=== PATIENT | female | born 2000 | race Caucasian/White ===

== ENCOUNTER 2023-01-05 15:29 | Outpatient (CLI) | payer OTHER, SELFPAY ==
[2023-01-05 16:29] LABS: Appearance Urine UA CLEAR; Bilirubin Urine UA NEGATIVE (NEGATIVE); Color Urine UA YELLOW; Glucose Urine UA NEGATIVE (Negative); Ketones Urine UA TRACE (NEGATIVE); Leukocyte Esterase Urine UA TRACE (NEGATIVE); Nitrite Urine UA NEGATIVE (Negative); Occult Blood Urine UA NEGATIVE (Negative); Protein Urine UA NEGATIVE (Negative); Specific Gravity Urine UA 1.025 (1.000-1.035); Urobilinogen Urine UA 0.2 E.U./dL (0.2)
[2023-01-05 16:31] LABS: pH Urine UA 6.5 (4.5-8.0)
[2023-01-05 16:52] LABS: Bacteria Urine Few (2-10); Culture Indicated Urine Cult Not Indicated; RBC Urine 0-1/HPF (0-5/HPF); Squamous Epithelial Cell Urine 10-30 /HPF (0-5/HPF); WBC Urine 1-5/HPF (0-5/HPF)
--- NOTE | 2023-01-08 08:08 | P.TNLD_ITS ---
Visit Information Visit Information Date of evaluation: 01/05/23 On-call OB Provider: Kaelyn Clayton Reason for Evaluation: Yes non-stress test Comments/Additional reasons for admission: 22yo at 31+2wks presented for blood on the toilet paper after wiping with a hard bowel movement. Reported some mild back pain as well. Gets her care in [place]. Vital Signs Vital Signs: BP 114/67, P 96, T 97.2, R 16 Review of Systems Review of Systems ROS: Yes All systems reviewed with the patient and are negative except as otherwise documented Objective Labs Labs: UA notable for trace ketones, trace leuk esterace, squamous cells and few bacteria Evaluation Evaluation Baseline heart rate: 140 Variability: Moderate (11-25) monitor accelerations: Present Monitor Decelerations: Absent Contraction Frequency (minutes): 0 Category of Tracing: Reactive Diagnosis, Plan/Disposition Final Diagnosis (1) False labor: Status: Acute (2) 31 weeks gestation of : Status: Acute Plan/Disposition Plan: 22yo at 31+3wks here for r/o PTL. Reactive NST, unremarkable UA. No vaginal bleeding while evaluated in triage. Suspect her blood with wiping is li genesis due to hemorrhoids, given her painful, hard bowel movement. -encouraged stool softeners -reviewed precautions and encouraged f/u with her primary OB provider OB Disposition: home
== END 2023-01-05 17:05 | disposition home or self-care (01) ==
LOC: LABOR 17:20 → OB 01-08 06:40
PROVIDERS: Referring Provider Student in an Organized Health Care Education/Training Program; Visit Provider Student in an Organized Health Care Education/Training Program
DX: O47.03 False labor before 37 completed weeks of gestation, third trimester (principal); Z3A.31 31 weeks gestation of pregnancy
CPT/HCPCS: 59025; 81001; G0378; G0379